=== PATIENT | male | born 1975 | race Caucasian/White ===

== ENCOUNTER 2019-01-15 15:22 | Inpatient (IN) ==
--- NOTE | 2019-01-15 18:00 | Diag Imaging Result Doc PS360 ---
US SCROTUM - 01/15/2019 INDICATION: Swollen/painful R testicle TECHNIQUE: COMPARISON: None FINDINGS: The epididymides are somewhat enlarged bilaterally. There are small bilateral hydroceles. There is significant skin thickening over the right side of the scrotum. The testes themselves are normal in echotexture. The right testicle measures 4.4 x 3.9 x 2.8 cm. The left testicle measures 4 x 3.2 x 2.1 cm. Normal vascular flow. IMPRESSION: 1. Probable bilateral epididymitis. 2. Small bilateral testicular hydroceles. 3. Skin thickening of the right hemiscrotum suggesting cellulitis. Electronically signed by Steve Horner 01/15/2019 5:58 PM
[2019-01-15 18:28] LABS: URINE SOURCE CLEAN CATCH
--- NOTE | 2019-01-15 18:28 | PROVIDER DOCUMENTATION ---
HPI-Male Problem - General Chief Complaint: Male Stated Complaint: [facility] REFERRED---MALE Time Seen by Provider: 01/15/19 15:23 Source: patient - History of Present Illness-Male Nature of Presenting Problem: Patient is a 43yo M who presents with complaints of R testicular pain and swelling x3 days. States pain radiates to his R groin as well. Reports yellow and bloody penile discharge. Reports chills, but is unsure of fever. States he has not been sexually active since February 2018. States some difficulty voiding. Reports prior to arrival to ED, he was seen at [facility]. States he was referred to the ER for scrotal ultrasound and evaluation. Denies dysuria, rectal pain, back pain, CP, or SOB. Location of Complaint: reports: scrotal (R testicle) Radiation: reports: groin (R) Quality of Pain: reports: throbbing Severity in ED: reports: moderate Onset/Duration: reports: 3 days ago Timing: reports: still present Context/Activities at Onset: reports: none Urinary Symptoms: reports: hesitancy, retention. denies: dysuria, frequency, low back pain Sexual intercourse history: reports: Greater Than 2 Months Ago Associated Symptoms: reports: penile discharge (yellow/bloody), pain/swelling in testicle (R) Associated Symptoms: reports: fever/chills (chills). denies: chest pain, dizziness, nausea, syncope, vomiting Similar Symptoms Previously?: No Recently seen or treated by another doctor?: Yes (referred from [facility]) Review of Systems - Adult - REVIEW OF SYSTEMS - ADULT Constitutional: reports: see HPI, chills Eyes: reports: no symptoms reported Ears, Nose, Mouth & Throat: reports: no symptoms reported Cardiovascular: reports: no symptoms reported. denies: chest pain, palpitations Respiratory: reports: no symptoms reported. denies: cough, shortness of breath Gastrointestinal: reports: no symptoms reported. denies: abdominal pain, diarrhea, nausea, vomiting Genitourinary: reports: see HPI, hesitency, urinary retention, other (R testicular pain/swelling; bloody penile discharge). denies: dysuria, flank pain Musculoskeletal: reports: no symptoms reported. denies: back pain, neck pain Integumentary: reports: no symptoms reported Neurological: reports: no symptoms reported. denies: dizziness/vertigo, headac he/migraines Psychiatric: reports: no symptoms reported Endocrine: reports: no symptoms reported Past History - Adult - PAST MEDICAL HISTORY-ADULT Review of Records: reports: Nursing Assessment Review, Medications Reviewed - IMMUNIZATION STATUS Childhood Immunizations: See Nurse Assessment Flu Vaccine: See Nurse Assessment - FAMILY HISTORY Family History: reviewed, not pertinent Physical Exam-General - PHYSICAL EXAM-ADULT Initial Vital Signs Reviewed: Yes - CONSTITUTIONAL General Appearance: alert, mild distress. negative: lethargic, slow to respond, obtunded - EYES Eyes: PERRL/EOMI, pink conjunctivae. negative: EOM palsy, scleral icterus - HEAD, EARS, NOSE, MOUTH & THROAT HENMT: normocephalic/atraumatic, moist mucous membranes. negative: angioedema - NECK Neck: non-tender, full range of motion, supple, normal inspection. negative: C- spine tenderness, limited range of motion - RESPIRATORY Respiratory: chest non-tender, lungs clear, normal breath sounds, no pleuratic chest pain, no respiratory distress, no accessory muscle use. negative: crackles, rales, rhonchi, stridor, wheezing - CARDIOVASCULAR Cardiovascular: tachycardia (111) - GENITOURINARY Male Genitalia: erythema (R testicle), scrotal swelling (R), testicular tenderness (R), other (Firmness R testicle). negative: herpes-like lesion Rectal Exam: deferred - MUSCULOSKELETAL Back Exam: normal inspection, no CVA tenderness, no vertebral tenderness. negative: decreased range of motion, vertebral tenderness Extremity: normal range of motion, non-tender, normal gait, normal inspection, pelvis stable - SKIN Integumentary: normal color, warm/dry. negative: cyanosis, jaundice, pallor - NEUROLOGIC Neurologic: grossly normal. negative: abnormal gait, aphasia, EOM palsy - PSYCHIATRIC Psych/Mental Status: normal mood/affect, normal thought content, normal thought process, oriented x 3 Progress - PLAN OF CARE/RESULTS Progress/Plan/Lab Results: Vital Signs - 8 hr 01/15/19 15:28 Temperature 98.7 F Pulse Rate 111 H Respiratory Rate 19 Blood Pressure 142/108 O2 Sat by Pulse Oximetry 98 Laboratory Results - last 24 hr 01/15/19 01/15/19 01/15/19 15:33 18:32 18:32 WBC 15.28 H RBC 5.45 Hgb 15.8 Hct 46.5 MCV 85.3 MCH 29.0 MCHC 34.0 RDW Std Deviation 12.8 Plt Count 162 MPV 9.5 Immature Gran % (Auto) 0.2 Neut % (Auto) 85.0 H Lymph % (Auto) 8.4 L [place] % (Auto) 6.0 Eos % (Auto) 0.3 Baso % (Auto) 0.1 Immature Gran # (Auto) 0.03 Neut # (Auto) 12.98 H Lymph # (Auto) 1.28 [place] # (Auto) 0.92 H Eos # (Auto) 0.05 Baso # (Auto) 0.02 Sodium 136 Potassium 4.1 Chloride 98 Carbon Dioxide 25 Anion Gap 13 BUN 12 Creatinine 1.3 H Estimated GFR/1.73 m2 60 BUN/Creatinine Ratio 9 Glucose 118 H Calculated Osmolality 273 Calcium 9.2 Total Bilirubin 1.22 H AST 11 ALT 12 Alkaline Phosphatase 136 H Total Protein 8.1 Albumin 4.4 Globulin 3.7 Albumin/Globulin Ratio 1.2 Urine Source CLEAN CATCH Urine Color YELLOW Urine Clarity CLEAR Urine pH 6.0 Ur Specific [place] 1.020 Urine Protein 30 A Urine Ketones TRACE A Urine Blood NEGATIVE Urine Nitrite POSITIVE A Urine Bilirubin MODERATE A Urine Urobilinogen 1.0 Urine Microscopic RBC <10 Urine WBC NEGATIVE Urine Microscopic WBC <10 Ur Epithelial Cells <10 Urine Bacteria NEGATIVE Urine Glucose NEGATIVE Orders Category Date Time Status [facility] [place] Communication Order DIRECTED Care 01/15/19 18:37 Active Saline Loc NOW Care 01/15/19 18:20 Active US SCROTUM [US] Stat Exams 01/15/19 15:31 Completed BLOOD CULTURE [BLDCUL] Stat Lab 01/15/19 19:45 Received CBC WITH ELECTRONIC DIFF [HEME] Stat Lab 01/15/19 18:32 Completed COMPREHENSIVE METABOLIC PANEL [CHEM] Stat Lab 01/15/19 18:32 Completed LACTATE, PLASMA [CHEM] Stat Lab 01/15/19 19:40 Received URINE CULTURE [RM] Routine Lab 01/15/19 18:33 Received Piperacillin/Tazobactam [Zosyn] 3.375 gm Med 01/15/19 18:37 Discontinued 0.9% Sodium Chloride Inj [Ns] 50 ml IV NOW Vancomycin 1 gm/Ns Med 01/15/19 18:37 Discontinued 1 gm in 250 ml IV NOW Lab results, imaging results, and need for admission discussed with patient who agrees with and verbalizes understanding. Result Diagrams: 01/15/19 18:32 01/15/19 18:32 - ULTRASOUND (By Radiology) 1 US Study: Scrotum Impression: See EMR Report ([facility] - [address], [address], [place] [address] [facility] - [address] [place] [address] Department of Imaging Patient: BHUMI CALDERON AADM Date: 01/15/19MR#: [id number] : 1975ADM Status: PRE ERAcct#: [id number] Age/Sex: 43/MRoom/Bed: Loc: ED Ordering Physician: Julianne Sotelo Family Physician: Ilya Hill MD Reason for Procedure: Swollen/painful R testicle Signed US SCROTUM - 01/15/2019 INDICATION: Swollen/painful R testicle TECHNIQUE: COMPARISON: None FINDINGS: The epididymides are somewhat enlarged bilaterally. There are small bilateral hydroceles. There is significant skin thickening over the right side of the scrotum. The testes themselves are normal in echotexture. The right testicle measures 4.4 x 3.9 x 2.8 cm. The left testicle measures 4 x 3.2 x 2.1 cm. Normal vascular flow. IMPRESSION: 1. Probable bilateral epididymitis. 2. Small bilateral testicular hydroceles. 3. Skin thickening of the right hemiscrotum suggesting cellulitis. Electronically signed by Steve Horner 01/15/2019 5:58 PM 01/15/19 5505 Interpreting Physician: Steve Horner MD Dictated Date/Time: 01/15/19 0326 cc: Julianne Odonnell; Ilya Hill MD) - CONSULTS/PCP/HOSPITALIST Notification #1 *Consult/PCP/Hospitalist*: [facility] Time Discussed: 19:15 Reason/Comments: Scrotal cellulitis Consult Disposition: Admit (Admit via hospitalist; consult urology) #2 Consult: León Plasencia Time Discussed: 19:54 Reason/Comments: Scrotal cellulitis; bilateral epididymitis, leukocytosis Consult Disposition: Admit Departure - Departure Date of Disposition Decision: 01/15/19 Time of Disposition Decision: 19:54 DIAGNOSIS: Cellulitis of scrotum, Epididymitis, bilateral UTI (urinary tract infection) Qualifiers: Urinary tract infection type: acute cystitis Hematuria presence: without hematuria Qualified Code(s): N30.00 - Acute cystitis without hematuria Leukocytosis Qualifiers: Leukocytosis type: unspecified Qualified Code(s): D72.829 - Elevated white blood cell count, unspecified Disposition: ADMITTED INPATIENT 09 Certified Medical Emergency: Emergent Condition: Fair Referrals and Follow-Ups: Ilya Hill MD [Primary Care Provider] - - Critical Care Note This patient required my direct & personal management of CC.: No Attestation - Physician/ SYDNEY Attestation Patient care was provided by Advanced Practice Provider:: Yes Advanced Practice Provider:: Julianne Odonnell Advanced Practice Provider documentation review:: The Mid-level provider documentation, treatment plan and medical decision making was reviewed by the physician who agrees with all treatment and medical decision making by the [facility]. The physician spent face to face time with patient:: No Advanced Practice Provider documentation review:: Supervising physician onsite and consulted in the evaluation and care of this patient. The physician did not have a face to face encounter with the patient.
[2019-01-15 18:32] LABS: BILIRUBIN URINE MODERATE (NEGATIVE); BLOOD URINE NEGATIVE (NEGATIVE); CLARITY CLEAR (CLEAR); COLOR YELLOW; GLUCOSE URINE NEGATIVE (NEGATIVE); KETONE URINE TRACE mg/dL (NEGATIVE); LEUKOCYTES URINE NEGATIVE (NEGATIVE); NITRITE URINE POSITIVE (NEGATIVE); PROTEIN URINE 30 mg/dL (NEGATIVE)
[2019-01-15 18:33] LABS: URINE BACTERIA NEGATIVE /HFP; URINE EPITHELIAL CELLS <10 /HPF (<10); URINE RBC <10 /HPF (<10); URINE WBC <10 /HPF (<10)
[2019-01-15] MEDS ORDERED: ZOSYN 3.375 GM in NS 50 ML IV ONE (18:37)
[2019-01-15] MEDS ORDERED: VANCOMYCIN 1 GM/NS 1 GM/250 ML IVPB IV ONE (18:37)
[2019-01-15 18:42] LABS: BASO# 0.02 X1000 (0.0-0.2); BASO% 0.1 % (0.0-0.8); EOS# 0.05 X1000 (0.0-0.7); EOS% 0.3 % (0.0-10.0); HEMATOCRIT 46.5 % (42.0-52.0); HEMOGLOBIN 15.8 g/dL (14.0-18.0); IMM GRAN# 0.03 X1000 (0.0-0.04); IMM GRAN% 0.2 % (0.0-0.5); LYMPH# 1.28 X1000 (1.2-3.4); LYMPH% 8.4 % (20.5-51.1); MCV 85.3 FL (81-99); MONO# 0.92 X1000 (0.11-0.59); MPV 9.5 FL (7.4-10.4); NEUT# 12.98 X1000 (1.4-6.5); PLT 162 X1000 (130-400); RBC 5.45 XMIL (4.7-6.1); RDW 12.8 % (11.5-14.5); WBC 15.28 X1000 (4.8-10.8)
[2019-01-15 18:59] LABS: ALB/GLOB RATIO 1.2; ALBUMIN 4.4 g/dL (3.5-5.0); CALCIUM 9.2 mg/dL (8.8-10.2); CREATININE 1.3 mg/dL (0.7-1.2); POTASSIUM 4.1 mmol/L (3.5-5.1); TOTAL BILIRUBIN 1.22 mg/dL (0.20-1.00); TOTAL PROTEIN 8.1 g/dL (6.3-8.3)
--- NOTE | 2019-01-15 22:36 | HISTORY AND PHYSICAL ---
PRIMARY CARE PHYSICIAN: Dr. Hill. CHIEF COMPLAINT: Scrotal pain for several days. HISTORY OF PRESENTING ILLNESS: This is a 43-year-old male without any significant past medical history who had presented to the emergency department with complaint of scrotal pain that has been going on for the past several days. The patient states that it was worsening and he was having more edema in his scrotal region. He was evaluated in the emergency department, he had a testicular ultrasound done which did show bilateral epididymitis and also with skin thickening suggestive of cellulitis. His case was discussed with Urology who recommended admission for further management. At the time of my examination the patient denied any headache, fever, chills, chest pain, shortness of breath, hemoptysis, melena or weight changes, but complained of scrotal pain. PAST MEDICAL HISTORY: None. PAST SURGICAL HISTORY: Shoulder surgery, right ankle surgery, right knee surgery. ALLERGIES: Penicillin, Ceclor, erythromycin, tetracycline, Flagyl, sulfa, Levaquin. CURRENT MEDICATIONS: None. SOCIAL HISTORY: No history of smoking. He stated he dips. He admits to social alcohol use. Denies any illicit drug use. FAMILY HISTORY: No history of coronary disease. REVIEW OF SYSTEMS: Fourteen point review of system is as listed in the HPI, other systems negative. PHYSICAL EXAMINATION: GENERAL: A cooperative friendly male. He is resting more comfortably now. VITAL SIGNS: Temperature 98.7 degrees, pulse 111, respirations 19, blood pressure 142/108. HEENT: Atraumatic, normocephalic. Extraocular movements intact. PERRLA. NECK: No masses. CHEST: Clear to auscultation. CARDIOVASCULAR: Regular rate and rhythm. ABDOMEN: Soft. Positive bowel sounds. EXTREMITIES: No edema. GENITOURINARY: There is moderate edema and tenderness in the scrotum. SKIN: Warm. NEUROLOGIC: Nonfocal. LABORATORIES AND STUDIES: WBC is 15.28, hemoglobin is 15.8, hematocrit is 46.5, platelets 162,000. Sodium 136, potassium 4.1, chloride 98, CO2 is 25, BUN is 12, creatinine is 1.3, glucose 118. UA shows nitrite positive. ASSESSMENT: This is a 43-year-old male without any significant past medical history who presented to the emergency department with several days history of having worsening scrotal pain. He was evaluated in the emergency department and he had a ultrasound done, which was consistent with cellulitis. Subsequently he will require admission for further management. ASSESSMENT: Scrotal skin cellulitis. PLAN: 1. We will admit the patient to a medical floor with telemetry. 2. We will give the patient adequate pain control and continue him on IV fluids. 3. We will start IV antibiotics. 4. We will consult Urology. 5. We will put the patient on DVT prophylaxis with SCDs. 6. We will continue to follow, reassess and make further recommendation based on the patient's clinical course. cc: Neeraj Plasencia MD
[2019-01-15] MEDS ORDERED: ZOFRAN IV PRN (23:26)
[2019-01-15] MEDS ORDERED: TYLENOL PO PRN (23:26)
[2019-01-15] MEDS ORDERED: ROCEPHIN 1 GM in NS 50 ML IV SCH (23:26)
[2019-01-15] MEDS ORDERED: MORPHINE IV PRN (23:26)
[2019-01-15] MEDS: NS 1,000 ML IV SCH (23:58)
[2019-01-16 05:41] LABS: BASO# 0.03 X1000 (0.0-0.2); BASO% 0.2 % (0.0-0.8); EOS# 0.08 X1000 (0.0-0.7); EOS% 0.7 % (0.0-10.0); HEMATOCRIT 41.3 % (42.0-52.0); HEMOGLOBIN 14.1 g/dL (14.0-18.0); IMM GRAN# 0.02 X1000 (0.0-0.04); IMM GRAN% 0.2 % (0.0-0.5); LYMPH# 1.37 X1000 (1.2-3.4); LYMPH% 11.4 % (20.5-51.1); MCH 29.3 PG (27-31); MCHC 34.1 g/dL (33-37); MCV 85.7 FL (81-99); MONO# 0.84 X1000 (0.11-0.59); MPV 9.5 FL (7.4-10.4); NEUT# 9.68 X1000 (1.4-6.5); NEUT% 80.5 % (42.2-75.2); PLT 137 X1000 (130-400); RBC 4.82 XMIL (4.7-6.1); RDW 12.8 % (11.5-14.5); WBC 12.02 X1000 (4.8-10.8)
[2019-01-16 05:53] LABS: AGAP 13; BUN 11 mg/dL (8-22); CHLORIDE 100 mmol/L (98-107); COSMO 273; CREATININE 1.2 mg/dL (0.7-1.2); ESTIMATED GFR > 60; GLUCOSE 98 mg/dL (70-104); POTASSIUM 3.9 mmol/L (3.5-5.1); SODIUM 137 mmol/L (136-145); TCO2 24 mmol/L (25-35)
[2019-01-16] MEDS: NS 1,000 ML IV SCH ×2 (08:21→21:25)
[2019-01-16] MEDS ORDERED: VANCOMYCIN IV PER PHARMACY MISC SCH (11:15)
--- NOTE | 2019-01-16 11:45 | PROGRESS NOTE ---
DATE: 01/16/2019 SUBJECTIVE: This morning, Mr. Dejesus refers to be doing well. Denies any new complaints. OBJECTIVE: Vital signs: Blood pressure is 133/93, pulse of 97, respirations 20, temperature 97.7 degrees. General: Mr. Dejesus is a 43-year-old gentleman. He is in bed, no distress. HEENT: Mucosa is pink and moist. Anicteric. Acyanotic. Neck: Supple. Chest: Clear to auscultation. Cardiovascular: Regular rate and rhythm. Abdomen: Soft, nontender. Bowel sounds present. Extremities: No pedal edema. Genitalia: The right scrotum is very swollen and large, is erythematous and warm. There is a small area on the bottom that is exuding some mild purulence. LABORATORY DATA: WBC is down to 12.09, rest of CBC is normal. Chemistry is completely within normal range. CURRENT MEDICATIONS: Have all been reviewed. He is on ceftriaxone. IMAGING: Report of the scrotal ultrasound shows probable bilateral epididymitis, bilateral testicular hydroceles. ASSESSMENT AND PLAN: 1. Scrotal cellulitis with abscess formation. Consult has been placed to Urology. We are pending their evaluation. For now, patient will be on antimicrobial therapy. We will broaden the antimicrobial coverage to include anaerobes as well. 2. Probable bilateral epididymitis noted. 3. History of hypertension. Currently under control. cc: Ronaldo Wyatt MD
[2019-01-16] MEDS: ZOSYN 3.375 GM in NS 50 ML IV SCH ×3 (12:12→22:30)
[2019-01-16] MEDS: VANCOMYCIN 2 GM in NS 500 ML IV SCH (14:41)
--- NOTE | 2019-01-16 19:26 | CONSULTATION ---
DATE OF CONSULTATION: 01/16/2019 REQUESTING PHYSICIAN: Hospitalists. REASON FOR CONSULTATION: Scrotal cellulitis with abscess. HISTORY OF PRESENT ILLNESS: A 43-year-old male without previous urologic history with previous urologic history significant for chronic prostatitis who developed scrotal swelling and pain 4 days ago. He reports the pain is dull, constant, radiates to his perineum. Nothing made it better. Nothing made it worse. It progressed from moderate to severe, which prompted presentation to the emergency room. He also reported spontaneous drainage of purulent material at the bottom part of the scrotum 2 days ago, and some today. He denies associated nausea, fevers or chills. His urologic history is pertinent for chronic prostatitis a number of years ago, which spontaneously resolved after he underwent vasectomy. He was seen in the emergency room with scrotal ultrasound revealing epididymitis as well as thickening in the scrotal skin. He was admitted and placed on intravenous antibiotics. He reports his pain and swelling have not changed. PAST MEDICAL HISTORY: GERD, depression, hypertension. PAST SURGICAL HISTORY: Shoulder arthroplasty, ankle surgery, knee arthroscopy and vasectomy. MEDICATIONS: Toprol-XL, omeprazole, Effexor. ALLERGIES: Penicillin, Flagyl, azithromycin. SOCIAL HISTORY: He denies smoking tobacco, he dips. He reports occasional alcohol use. He denies illicit drug use. FAMILY HISTORY: Negative for malignancies or urolithiasis. REVIEW OF SYSTEMS: Reviewed and 12 systems negative except for the HPI. PHYSICAL EXAMINATION: T 98.7 degrees, P 83, BP 122/87.General: No acute distress. HEENT: Normocephalic, atraumatic. Neck is supple. No masses palpable. Cardiovascular: Regular rate and rhythm. Pulmonary: Bilateral breath sounds. Abdomen is protuberant, nontender to palpation. Back: No CVA tenderness. Lymphatic: No inguinal lymphadenopathy. No groin lymphadenopathy. : Circumcised penis, normal meatus. Scrotum is edematous, erythematous, with fluctuant 4 x 4 cm area in the dependent portion of the scrotum toward the right side below his testis. The testis is not palpable due to scrotal swelling. Purulent material is noted on his underwear. Perineum is intact without evidence of crepitus. No crepitus or fluctuance noted in his groins, again. Digital rectal examination is deferred at this time. Dermatologic: No obvious skin rashes. Neurologic: Alert and oriented x3. Psychiatric: Appropriate mood and affect. PERTINENT LABORATORY DATA: White cell count is 12,000, creatinine is 1.2. DIAGNOSTIC DATA: Pertinent images: Scrotal ultrasound on 01/15/2019 as per HPI. It also showed epididymal inflammation as well as bilateral hydroceles. ASSESSMENT AND PLAN: A 43-year-old male with epididymitis, hydroceles, scrotal pain and scrotal abscess. I have discussed with the patient that given the fluctuant area and spontaneous drainage, he would benefit from incision and drainage rather than maintaining antibiotics for several days. We discussed risks of the procedure including, but not limited to, bleeding, infection, injury to the testis, injury to the adjacent structures or need for additional interventions. He was counseled that he might have packing or drain, or both at the conclusion of the case. Mr. Dejesus voiced understanding and wants to proceed. PLAN: 1. NPO after midnight. 2. Continue antibiotics for now. 3. To operating room tomorrow for incision and debridement of scrotal abscess. cc: Brian Mcintosh MD
[2019-01-17 05:33] LABS: BASO# 0.02 X1000 (0.0-0.2); BASO% 0.2 % (0.0-0.8); EOS% 1.2 % (0.0-10.0); HEMATOCRIT 37.8 % (42.0-52.0); HEMOGLOBIN 12.8 g/dL (14.0-18.0); IMM GRAN# 0.02 X1000 (0.0-0.04); IMM GRAN% 0.2 % (0.0-0.5); LYMPH# 1.26 X1000 (1.2-3.4); LYMPH% 15.3 % (20.5-51.1); MCH 29.2 PG (27-31); MCHC 33.9 g/dL (33-37); MCV 86.3 FL (81-99); MONO# 0.55 X1000 (0.11-0.59); MONO% 6.7 % (1.7-9.3); MPV 9.9 FL (7.4-10.4); NEUT# 6.29 X1000 (1.4-6.5); NEUT% 76.4 % (42.2-75.2); PLT 148 X1000 (130-400); RBC 4.38 XMIL (4.7-6.1); RDW 12.5 % (11.5-14.5); WBC 8.24 X1000 (4.8-10.8)
[2019-01-17] MEDS: ZOSYN 3.375 GM in NS 50 ML IV SCH ×3 (05:35→20:00)
[2019-01-17 05:57] LABS: ALBUMIN 3.4 g/dL (3.5-5.0); CALCIUM 8.3 mg/dL (8.8-10.2); CREATININE 1.3 mg/dL (0.7-1.2); PHOSPHORUS 2.9 mg/dL (2.7-4.5); POTASSIUM 3.9 mmol/L (3.5-5.1)
[2019-01-17] MEDS ORDERED: DIPRIVAN 1% ONE (09:39)
[2019-01-17] MEDS ORDERED: SUFENTA ONE (09:40)
[2019-01-17] MEDS ORDERED: VERSED ONE (09:41)
[2019-01-17] MEDS ORDERED: ZOFRAN ONE (10:19)
[2019-01-17] MEDS ORDERED: DECADRON ONE (10:19)
[2019-01-17] MEDS ORDERED: OFIRMEV 1000 MG/ISOTONIC SOLN 1,000 MG/100 ML BOTTLE ONE (10:21)
--- NOTE | 2019-01-17 12:48 | PROGRESS NOTE ---
DATE: 01/17/2019 SUBJECTIVE: This morning Mr. Dejesus referred to be doing well. He was awaiting for surgical intervention from Urology. OBJECTIVE: Vital Signs: Blood pressure 128/81, pulse of 81, respirations 18, and temperature 98.8 degrees. Patient was saturating 98% on room air. General: Mr. Dejesus is a 43-year-old gentleman. He was in bed in no distress. Mucosa is pink and moist. Anicteric. Acyanotic. Neck: Supple. Chest: Clear to auscultation. No crepitations. No rhonchi. Cardiovascular: Regular rate and rhythm. Abdomen: Soft and nontender. Bowel sounds present. Extremities: No pedal edema. Genitalia: Right scrotum continues to be remarkably swollen, and extruding some purulence. LABORATORY DATA: WBC has normalized. Rest of chemistry is unremarkable. Creatinine is 1.3. Rest of chemistry is unremarkable. The patient's blood culture /2 were showing gram-positive cocci, probably a contaminant. The scrotum gram stain showed 1+ white cell count. ASSESSMENT: 1. Scrotal abscess with surrounding cellulitis. Patient is pending urological intervention today. 2. Bilateral epididymitis documented on ultrasound. 3. Hypertension is controlled. PLAN: In general, I think Mr. Dejesus is medically stable. He is pending a possible I and D of the scrotum. We will follow up with further recommendations from Urology. We are going to continue with the current antimicrobial coverage and follow up with the cultures. cc: Ronaldo Wyatt MD
[2019-01-17] MEDS: VANCOMYCIN 2 GM in NS 500 ML IV SCH (14:47)
[2019-01-18] MEDS: ZOSYN 3.375 GM in NS 50 ML IV SCH ×4 (01:57→20:31)
--- NOTE | 2019-01-18 06:36 | OPERATIVE NOTE ---
PROCEDURE DATE: 01/17/2019 SURGEON: Dr. Brian Mcintosh. PREOPERATIVE DIAGNOSIS: Scrotal abscess and scrotal pain. PROCEDURES: Incision and debridement of scrotal abscess. INDICATIONS: A 43-year-old male without previous significant urologic history other than chronic prostatitis who presented with scrotal swelling and pain. He underwent scrotal ultrasound on 01/15/2018 revealing epididymitis, hydroceles and possible cellulitis. He reported developing spontaneous purulent drainage. Upon examination by me on 01/16/2019, had evidence of scrotal abscess. He was counseled, antibiotics and observation versus incisional debridement, and wants to proceed with the latter. FINDINGS: Fairly significant amount of purulent material was extracted from the inferior portion of the scrotum. There was no evidence of extension to the perineum or his inguinal canal. The drainage from the wound was sent off for culture. Adequate hemostasis at conclusion of the case. PROCEDURE IN DETAIL: After obtaining informed consent, patient was brought to the operating room. Laryngeal mask anesthesia was administered. He was already on antibiotics. He was placed in supine position with his genitals prepped and draped, and shaved in a sterile fashion. He had a spontaneous 3 mm opening on the inferior portion of scrotum, and hence, I made a proximal 4 cm incision incorporating the area of drainage. I then dissected through subcutaneous tissues which were thick, and dartos fascia eventually exposing the abscess. This appeared to be contained to the right hemiscrotum. Cultures were obtained per protocol. I then used my finger to dissect around the right testis which was fairly firm and edematous from the infection. There was no evidence of abscess extending to the perineum or the inguinal canal. I then copiously irrigated the wound with normal saline. This was followed by introduction of 1 inch iodoform gauze packing the wound. I then used 3-0 chromic suture in a running fashion to reapproximate dartos fascia followed by skin approximation with 3-0 chromic sutures in a horizontal mattress fashion. I left approximately a 2 cm opening in order to be able to pack the wound appropriately. Gauze followed by application of mesh scrotal support to place. He was extubated and taken to PACU for further recovery. ESTIMATED BLOOD LOSS: 5 mL. COMPLICATIONS: None. DRAINS: None. SPECIMENS: None, but scrotal fluid was sent off for culture. DISPOSITION: To PACU and back to the floor. cc: Brian Mcintosh MD
[2019-01-18] MEDS: NORCO-10 PO PRN (11:01)
--- NOTE | 2019-01-18 13:45 | PROGRESS NOTE ---
DATE: 01/18/2019 SUBJECTIVE: This morning Mr. Dejesus referred to be doing well. No new complaints. The father was at the bedside at the time of the encounter. OBJECTIVE: Vital signs: Blood pressure is 156/94, pulse of 90, respirations 15, temperature 98.2 degrees. Patient is saturating 98%. General: Mr. Dejesus is a 43-year-old gentleman. He is in bed. No distress. Mucosa is pink and moist. Anicteric. Acyanotic. Neck: Supple. Chest: Clear to auscultation. No crepitations. No rhonchi. Cardiovascular: Regular rate and rhythm. Abdomen: Soft. Extremities: No pedal edema. Genitalia: Right scrotum continues to be minimally swollen but less tender than before. The surgical incision has stitches in it. LAB WORK: No labwork for this morning. The microbiology data, the culture from before the surgery has shown MRSA. We are still pending the surgical specimen results. ASSESSMENT: 1. MRSA scrotal abscess with surrounding cellulitis. Patient has undergone I D. We are still waiting on the surgical specimen culture report. The patient continues to be on antimicrobial therapy. 2. Bilateral epididymitis, documented on ultrasound. 3. Hypertension. We will continue with medications. cc: Ronaldo Wyatt MD
[2019-01-18] MEDS: VANCOMYCIN 2 GM in NS 500 ML IV SCH (14:54)
[2019-01-19] MEDS: ZOSYN 3.375 GM in NS 50 ML IV SCH (01:50)
[2019-01-19] MEDS: CLEOCIN PO SCH ×2 (09:53→13:06)
[2019-01-19] MEDS: NORCO-10 PO PRN (11:44)
[2019-01-19 12:40] VITALS: BP 159/96
--- NOTE | 2019-01-19 15:39 | PROGRESS NOTE ---
DATE: 01/19/2019 SUBJECTIVE: Mr. Dejesus has had a decent night overnight. He denies significant pain. He denies fevers or chills. OBJECTIVE: Vital Signs: Temperature 97.7 degrees, pulse is 85, blood pressure 145/94. General: In no acute distress. Abdomen: Nontender, nondistended. Genitourinary: Scrotum is edematous. Packing in place. No evidence of fluctuance or crepitus along the scrotum or the perineum noted. PERTINENT LABORATORIES: None. PERTINENT MICROBIOLOGY: Wound culture growing Staphylococcus aureus consistent with MRSA. ASSESSMENT AND PLAN: A 44-year-old male, status post incision and drainage of methicillin- resistant Staphylococcus aureus abscess who is doing better. I have educated him that he would need to pack his wound with iodoform gauze once a day until it shows good signs of healing and then slowly decrease the amount of packing that he puts in. He states he is comfortable with doing so. I plan on seeing him in 2 weeks in the clinic for a checkup or sooner if there is a problem. cc: Brian Mcintosh MD
--- NOTE | 2019-01-20 10:24 | DISCHARGE SUMMARY ---
ADMISSION DATE: 01/15/2019 DISCHARGE DATE: 01/19/2019 DISPOSITION: Home. FOLLOW UP: Follow-up will be with Dr. Mcintosh, and Dr. Ilya Hill. CONSULTATION DURING THIS ADMISSION: Urology was consulted, the patient was seen by Dr. Mcintosh. INVASIVE PROCEDURES DONE DURING THIS ADMISSION: Incision and debridement of scrotal abscess was done by Dr. Mcintosh on 01/17/2019. ADMISSION DIAGNOSIS: Scrotal skin cellulitis. DIAGNOSES AT THE TIME OF DISCHARGE: 1. Methicillin-resistant Staphylococcus aureus scrotal abscess, with surrounding cellulitis. The patient underwent incision and drainage. The surgical specimen also grew methicillin- resistant Staphylococcus aureus. 2. Bilateral epididymitis. 3. Hypertension. 4. Renal failure. DISCHARGE MEDICATIONS: 1. Metoprolol 50 mg p.o. q.a.m. 2. Omeprazole 40 mg p.o. q.a.m. 3. Effexor 75 mg p.o. q.a.m. 4. Clindamycin 600 mg 3 times per day. 5. Losartan 25 mg daily. 6. Culturelle 1 tab b.i.d. 7. Fairfield 5 p.o. q.6h p.r.n. PRESENTING COMPLAINT: Scrotal pain for several days. HISTORY OF PRESENT COMPLAINT: Mr. Dejesus has a history of high blood pressure, and came to the emergency department because of scrotal swelling and pain. Upon presenting, he was evaluated and was found to have cellulitis. Ultrasound of the testicles showed bilateral epididymitis and skin thickening suggestive of cellulitis. Mr. Dejesus was admitted to the medical floor on IV antibiotics, and Urology was consulted. HOSPITAL COURSE: Mr. Dejesus was admitted to the medical floor. Urology evaluated him. Culture was made from the exudation, and Urology made a determination to take the patient to the OR. I and D was done, please refer to the details of the surgical note. Postoperatively Mr. Dejesus continued to improve and his swelling remarkably subsided. The surgical specimen has also come back positive for MRSA. Antibiotics have been changed to p.o. clindamycin. He has taken the first dose in the hospital. He has tolerated it well. Mr. Dejesus also has multiple allergies to other antibiotics including penicillins. Today Mr. Dejesus referred to be doing a lot better. At the time of the encounter, the father and the mom were both at the bedside. His current vitals show blood pressure is 159/96, pulse is 78, respirations 16, temperature is 97.4 degrees. We think he is in stable condition for discharge. Mr. Dejesus has been started on losartan to help control his blood pressure even better. We are going to give him a prescription for Ansaid for inflammation, however, because of his renal impairment, we chose using Fairfield for pain control. He has been advised to follow up with his primary care doctor and follow his renal functions accordingly. TIME SPENT FOR DISCHARGE: 35 minutes. All the discharge instructions have been discussed with Mr. Dejesus. He voiced understanding. The mother and the father was at the bedside, who voiced understanding. cc: MD Ilya Richards MD Sergey S. Ananyev, MD
== END 2019-01-19 15:05 | disposition home or self-care (01) | DRG 718 ==
LOC: ED 15:22 → SUATTDRO 22:55 → MERGE 22:55 → 1N 22:55
PROVIDERS: ATTEND Internal Medicine